=== PATIENT | female | born 2000 | race African-American/Black ===

== ENCOUNTER 2019-03-04 18:18 | Inpatient (IN) ==
[2019-03-04] MEDS ORDERED: NS 1,000 ML IV ONE ×2 (18:31→19:54)
[2019-03-04 18:48] LABS: BLOOD TYPE ARTERIAL; SAMPLE BLOOD
[2019-03-04 18:49] LABS: BASO# 0.01 X1000 (0.0-0.2); BASO% 0.2 % (0.0-0.8); EOS# 0.06 X1000 (0.0-0.7); EOS% 1.1 % (0.0-10.0); HEMATOCRIT 39.8 % (37.0-47.0); HEMOGLOBIN 13.9 g/dL (12.0-16.0); IMM GRAN# 0.03 X1000 (0.0-0.04); IMM GRAN% 0.5 % (0.0-0.5); LYMPH# 1.69 X1000 (1.2-3.4); LYMPH% 30.5 % (20.5-51.1); MCH 27.4 PG (27-31); MCHC 34.9 g/dL (33-37); MCV 78.5 FL (81-99); MONO# 0.65 X1000 (0.11-0.59); MONO% 11.7 % (1.7-9.3); MPV 10.9 FL (7.4-10.4); NEUT# 3.11 X1000 (1.4-6.5); PLT 349 X1000 (130-400); RBC 5.07 XMIL (4.2-5.4); RDW 12.8 % (11.5-14.5); WBC 5.55 X1000 (4.8-10.8)
[2019-03-04 18:49] LABS: BE -10.5 mmoll (-3.0-3.0); HCO3-(ACT) 16.6 mmoll (20.0-26.0); METHB 1.3 % (0.0-1.5); O2(CT) 18.4 mL/dL (15.0-23.0); O2HB 93.4 % (95.0-99.0); PCO2(98.6) 27 mmHg (35-45); PO2(98.6) 73 mmHg (60-100); pH(98.6) 7.32 (7.35-7.45)
[2019-03-04 18:51] LABS: MODALITY ROOM AIR
[2019-03-04 18:52] LABS: ALLEN TEST YES
[2019-03-04 18:57] LABS: ESTIMATED GFR > 60
[2019-03-04 18:59] LABS: AGAP 21; BUN 8 mg/dL (8-22); CALCIUM 9.5 mg/dL (8.8-10.2); CHLORIDE 93 mmol/L (98-107); COSMO 282; CREATININE 0.6 mg/dL (0.5-0.9); POTASSIUM 4.6 mmol/L (3.5-5.1); SODIUM 131 mmol/L (136-145); TCO2 17 mmol/L (25-35)
[2019-03-04] MEDS ORDERED: HUMULIN R IV ONE (19:00)
[2019-03-04 19:01] LABS: GLUCOSE 468 mg/dL (70-104)
[2019-03-04] MEDS ORDERED: HUMULIN R (PARKWAY) IV ONE (19:16)
[2019-03-04 19:22] LABS: CK PROFILE 58 U/L (24-173); PHOSPHORUS 4.3 mg/dL (2.7-4.5)
[2019-03-04] MEDS ORDERED: NS 100 ML IV ONE (19:24)
[2019-03-04 19:28] LABS: BILIRUBIN URINE NEGATIVE (NEGATIVE); BLOOD URINE NEGATIVE (NEGATIVE); KETONE URINE 3+(Large) mg/dL (NEGATIVE); LEUKOCYTES URINE NEGATIVE (NEGATIVE); NITRITE URINE NEGATIVE (NEGATIVE); PROTEIN URINE TRACE mg/dL (NEGATIVE); SP GRAVITY URINE 1.015; UROBILINOGEN URINE NORMAL
[2019-03-04 19:29] LABS: CLARITY CLEAR (CLEAR); COLOR YELLOW
[2019-03-04 19:35] LABS: UR AMPHETAMINES QUAL NONE DETECTED (NONE DETECT); UR BARBITUATES QUAL NONE DETECTED (NONE DETECT); UR BENZODIAZEPIN QUAL NONE DETECTED (NONE DETECT); UR CANNABINOIDS QUAL NONE DETECTED (NONE DETECT); UR COCAINE QUAL NONE DETECTED (NONE DETECT); UR METHADONE QUAL NONE DETECTED (NONE DETECT); UR METHAMPHETAMINE QUAL NONE DETECTED (NONE DETECT); UR OPIATES QUAL NONE DETECTED (NONE DETECT); UR OXYCODONE QUAL NONE DETECTED (NONE DETECT); UR PCP QUAL NONE DETECTED (NONE DETECT); UR PROPOXYPHENE QUAL NONE DETECTED (NONE DETECT); UR TCA QUAL NONE DETECTED (NONE DETECT)
[2019-03-04 19:42] LABS: ACETONE SERUM SMALL (NEGATIVE)
[2019-03-04] MEDS ORDERED: ZOFRAN IV PRN (19:45)
[2019-03-04 19:55] LABS: URINE SOURCE CLEAN CATCH
[2019-03-04 19:56] LABS: URINE BACTERIA NEGATIVE /HFP; URINE EPITHELIAL CELLS >10 /HPF (<10); URINE RBC <10 /HPF (<10); URINE WBC <10 /HPF (<10); URINE YEAST NONE SEEN /HPF
[2019-03-04 19:57] LABS: URINE CAST NONE SEEN /LPF; URINE CRYSTAL NONE SEEN /HPF
[2019-03-04] MEDS: HUMULIN R (PARKWAY) IV ONE ×3 (19:58→23:14)
[2019-03-04] MEDS ORDERED: D5 NS 1,000 ML ONE (23:07)
[2019-03-04] MEDS: D5 NS 1,000 ML IV SCH (23:14)
[2019-03-04] MEDS ORDERED: D5 NS 1,000 ML IV SCH (23:15)
[2019-03-04 23:19] LABS: AGAP 13; BUN 6 mg/dL (8-22); CHLORIDE 102 mmol/L (98-107); COSMO 276; CREATININE 0.5 mg/dL (0.5-0.9); ESTIMATED GFR > 60; GLUCOSE 150 mg/dL (70-104); MAGNESIUM 1.8 mg/dL (1.5-2.7); PHOSPHORUS 2.3 mg/dL (2.7-4.5); POTASSIUM 3.6 mmol/L (3.5-5.1); SODIUM 138 mmol/L (136-145); TCO2 23 mmol/L (25-35)
[2019-03-05] MEDS ORDERED: NS 1,000 ML IV SCH ×2 (00:45→09:45)
[2019-03-05] MEDS ORDERED: MAGNESIUM SULFATE 2 GM/S.W.I. 2 GM/50 ML IVPB IV PRN (00:45)
[2019-03-05] MEDS ORDERED: POTASSIUM CHLORIDE 20% LIQUID PO PRN (00:45)
[2019-03-05] MEDS ORDERED: ZOFRAN IV PRN (00:45)
[2019-03-05] MEDS ORDERED: HUMULIN R 100 UNIT in NS 99 ML IV SCH (00:45)
[2019-03-05] MEDS ORDERED: POTASSIUM CHLORIDE 10% LIQUID PO PRN (00:45)
[2019-03-05] MEDS ORDERED: D5 NS 1,000 ML IV SCH (00:45)
[2019-03-05] MEDS ORDERED: SODIUM BICARBONATE 8.4% 100 MEQ in STERILE WATER INJ. 500 ML IV PRN (00:45)
[2019-03-05] MEDS ORDERED: SODIUM PHOSPHATE 30 MMOL in D5W 250 ML IV PRN (00:45)
[2019-03-05] MEDS ORDERED: POTASSIUM CHLORIDE 40 MEQ/SWI 40 MEQ/100 ML IVPB IV PRN (00:45)
[2019-03-05] MEDS ORDERED: HUMULIN R IV ONE (00:45)
[2019-03-05] MEDS ORDERED: D50W SYRINGE IV PRN (00:45)
[2019-03-05] MEDS: POTASSIUM CHLORIDE 20 MEQ/SWI 20 MEQ/100 ML IVPB IV PRN ×3 (01:09→06:58)
[2019-03-05 01:14] LABS: AGAP 14; BUN 7 mg/dL (8-22); CALCIUM 8.8 mg/dL (8.8-10.2); CHLORIDE 102 mmol/L (98-107); COSMO 276; CREATININE 0.4 mg/dL (0.5-0.9); ESTIMATED GFR > 60; GLUCOSE 170 mg/dL (70-104); MAGNESIUM 1.8 mg/dL (1.5-2.7); PHOSPHORUS 2.7 mg/dL (2.7-4.5); POTASSIUM 3.4 mmol/L (3.5-5.1); SODIUM 137 mmol/L (136-145); TCO2 21 mmol/L (25-35)
[2019-03-05] MEDS: D5 NS 1,000 ML IV SCH (05:57)
[2019-03-05 06:41] LABS: AGAP 12; BUN 7 mg/dL (8-22); CALCIUM 8.3 mg/dL (8.8-10.2); CHLORIDE 107 mmol/L (98-107); COSMO 278; CREATININE 0.4 mg/dL (0.5-0.9); ESTIMATED GFR > 60; GLUCOSE 182 mg/dL (70-104); MAGNESIUM 1.7 mg/dL (1.5-2.7); SODIUM 138 mmol/L (136-145); TCO2 19 mmol/L (25-35)
[2019-03-05 09:21] LABS: HEMOGLOBIN A1C 13.9 % (4.8-6.0)
[2019-03-05 09:40] LABS: AGAP 12; BUN 7 mg/dL (8-22); CHLORIDE 108 mmol/L (98-107); COSMO 280; CREATININE 0.4 mg/dL (0.5-0.9); ESTIMATED GFR > 60; GLUCOSE 149 mg/dL (70-104); MAGNESIUM 2.4 mg/dL (1.5-2.7); POTASSIUM 3.7 mmol/L (3.5-5.1); SODIUM 140 mmol/L (136-145); TCO2 21 mmol/L (25-35)
--- NOTE | 2019-03-05 09:44 | HISTORY AND PHYSICAL ---
PRIMARY CARE PHYSICIAN: Is in [place], [place] where she attends college but is back home in [place] for summer break. CHIEF COMPLAINT: Increased blood sugars in the 400s after taking medications. HISTORY OF PRESENTING ILLNESS: This is a 18-year-old female who presents to [facility] ER with complaints of an elevated blood sugar in the 400s that began on the morning of arrival. States that she had taken her medications in a.m. Her blood sugar stayed elevated in the 400s. Prior to this she states that her blood sugars normally run in the low 200s. She has a history of DKA in the past. When she arrived her blood sugar was 468 with a sodium of 131, chloride 93, the anion gap was 21. Her acetone level was small, so she was admitted to the intensive care unit and placed on our DKA protocol for further evaluation and treatment. PAST MEDICAL HISTORY: Diabetes type 1 and DKA. PAST SURGICAL HISTORY: None. FAMILY HISTORY: Reviewed and noncontributory. SOCIAL HISTORY: She currently lives with family. Denies any tobacco, alcohol or illicit drug use. ALLERGIES: She has no known drug allergies. HOME MEDICATIONS: She takes Levemir 25 units subcutaneous at bedtime and Humalog 12 units subcutaneous t.i.d. a.c. LABORATORY DATA: Showed a white blood cell count of 5.55, hemoglobin 13.9, hematocrit 39.8, platelets 349,000. ABG with a pH of 7.32, pCO2 27, bicarb 16.6, and this was on room air. Sodium 131, potassium 4.6, chloride 93, CO2 17, anion gap of 21, BUN of 8, creatinine 0.6, glucose 468, magnesium of 1.8. Plasma lactate of 1.3. Cardiac enzyme was negative. Urinalysis was negative except for 3+ ketones and 3+ glucose. Urine drug screen was negative. Acetone level was small. REVIEW OF SYSTEMS: She denied any fever, chills, blurred vision, dizziness. Denied any nausea, vomiting, abdominal pain, constipation, diarrhea, or burning or hurting with urination. PHYSICAL EXAMINATION: VITAL SIGNS: On arrival she had a temperature of 98 degrees, pulse of 120, respirations 20, blood pressure 120/87, saturating 100% on room air. GENERAL: This is a 18-year-old female who is lying in the bed and answers questions appropriately. HEEMNT: Normocephalic, atraumatic. Normal ENT inspection. Oropharynx and nares are clear. EYES: Pupils are equal, round, reactive to light and accommodation. Extraocular movements are intact. NECK: Normal inspection. Normal range of motion. LUNGS: Clear to auscultation bilaterally with equal lung expansion and chest wall movement. HEART: With regular rate and rhythm. No murmurs, rubs, or gallops. ABDOMEN: Soft, nontender, nondistended. Bowel sounds are present x4 quadrants. MUSCULOSKELETAL: She has 5/5 strength x4 extremities. NEUROLOGICAL: The cranial nerves 2-12 appear grossly intact. ASSESSMENT: 1. Diabetic ketoacidosis. 2. Diabetes type 1, uncontrolled with hyperglycemia. PLAN: She was admitted to the intensive care unit. Placed on our DKA protocol on an insulin drip per the protocol. I am going to give her a diabetic diet this morning as she denies any nausea, vomiting, abdominal pain. She has fluids per the protocol. Electrolytes being given per protocol and labs. We are going to check a hemoglobin A1c today. Once she is off her insulin drip, which she is very close at this time as currently her blood sugar is down to 191 we are going to continue her home medications and place her on fingerstick blood sugars q.[address] on a sliding scale insulin of Humalog with moderate coverage. Further orders after seen by attending. Dictated by ANDREIA Orona for Guzman Ontiveros MD Addendum: Patient seen and examined by myself. Agree with ANDREIA note. It reflects my assessment and plan. Patient is being admitted to hospital for DKA. Now it is almost resolved. Will restart Levemir and sliding scale insulin and will go from there. cc: ANDREIA Orona MD [facility]
[2019-03-05] MEDS ORDERED: LEVEMIR INSULIN *HA SUBQ SCH ×2 (09:45→21:00)
[2019-03-05] MEDS: LEVEMIR INSULIN *HA SUBQ SCH (09:59)
[2019-03-05] MEDS ORDERED: HUMALOG (PARKWAY) SUBQ SCH ×2 (11:00)
[2019-03-05] MEDS: HUMALOG (PARKWAY) SUBQ SCH ×3 (11:09→21:56)
--- NOTE | 2019-03-05 11:16 | EKG Report ---
Test Performed on : 03/04/2019 6:47:21 PM Test Reason : ER Blood Pressure : / mmHG Vent. Rate : 112 BPM Atrial Rate : 112 BPM P-R Int : 150 ms QRS Dur : 076 ms QT Int : 334 ms P-R-T Axes : 072 060 043 degrees QTc Int : 455 ms Sinus tachycardia. Possible Left atrial enlargement Borderline ECG No previous ECGs available Unconfirmed Result
[2019-03-06] MEDS: HUMALOG (PARKWAY) SUBQ SCH ×2 (06:28→11:25)
[2019-03-06 09:09] LABS: BASO# 0.01 X1000 (0.0-0.2); BASO% 0.3 % (0.0-0.8); EOS# 0.09 X1000 (0.0-0.7); EOS% 2.5 % (0.0-10.0); HEMATOCRIT 36.6 % (37.0-47.0); HEMOGLOBIN 12.2 g/dL (12.0-16.0); IMM GRAN# 0.02 X1000 (0.0-0.04); IMM GRAN% 0.6 % (0.0-0.5); LYMPH# 1.16 X1000 (1.2-3.4); MCH 26.6 PG (27-31); MCHC 33.3 g/dL (33-37); MCV 79.9 FL (81-99); NEUT# 1.95 X1000 (1.4-6.5); NEUT% 53.6 % (42.2-75.2); PLT 279 X1000 (130-400); RBC 4.58 XMIL (4.2-5.4); WBC 3.63 X1000 (4.8-10.8)
[2019-03-06 09:29] LABS: AGAP 13; BUN 8 mg/dL (8-22); CALCIUM 8.2 mg/dL (8.8-10.2); CHLORIDE 108 mmol/L (98-107); COSMO 283; CREATININE 0.3 mg/dL (0.5-0.9); ESTIMATED GFR > 60; GLUCOSE 162 mg/dL (70-104); PHOSPHORUS 3.7 mg/dL (2.7-4.5); POTASSIUM 3.4 mmol/L (3.5-5.1); SODIUM 141 mmol/L (136-145); TCO2 21 mmol/L (25-35)
[2019-03-06] MEDS ORDERED: KLOR-CON PO ONE (10:12)
[2019-03-06] MEDS: LEVEMIR INSULIN *HA SUBQ SCH (10:14)
[2019-03-06 12:24] VITALS: BP 98/59
[2019-03-06] MEDS ORDERED: TORADOL IV ONE (12:24)
[2019-03-06] MEDS ORDERED: OFIRMEV 1000 MG/ISOTONIC SOLN 1,000 MG/100 ML BOTTLE IV SCH (12:30)
--- NOTE | 2019-03-06 12:33 | DISCHARGE SUMMARY ---
ADMISSION DATE: 03/04/2019 DISCHARGE DATE: 03/06/2019 ADMISSION DIAGNOSES: 1. Diabetic ketoacidosis. 2. Diabetes type 1, uncontrolled with hyperglycemia. DISCHARGE DIAGNOSES: 1. Diabetic ketoacidosis, resolved. 2. Diabetes type 1, uncontrolled with hyperglycemia. Hemoglobin A1c 13.9. SUMMARY OF FINDINGS: This is a 18-year-old female who presented to the emergency room with complaints of an elevated blood sugar in the 400's that began on the morning of arrival. She states she had taken her medication in the morning, and her blood sugars stayed elevated in the 400s. She states that they normally run in the low 200s. Again, her hemoglobin A1c was 13.9. She was found to be in DKA. Anion gap was 21, blood sugar 468. Her acetone level was small. She was admitted to the intensive care unit and placed on our DKA protocol and an insulin drip. She has since been weaned off of the insulin drip, and placed on her home medications of Levemir 30 units subcutaneous daily, and continued on pattern blood sugars with sliding scale insulin. This morning her blood sugar was noted to be 162, and it was felt that she could safely be discharged home. DISCHARGE MEDICATIONS: 1. Levemir 35 units subcu at bedtime. 2. Humalog 12 units subcutaneous t.i.d. before meals. FOLLOW UP: She will need to follow up with her primary care physician in [place], [place] in the next 1 to 2 weeks, and call their office for an appointment. All discharge instructions were reviewed with the patient, and she verbalized understanding. TIME SPENT: A 33 minute discharge. Dictated by ANDREIA Orona for Guzman Ontiveros MD Addendum: Patient seen and examined by myself. Agree with ANDREIA note. It reflects my assessment and plan. Patient is being discharged in stable condition. Will be seen by primary care doctor in a week. cc: ANDREIA Orona MD [facility]
--- NOTE | 2019-03-08 17:00 | PROVIDER DOCUMENTATION ---
This chart was entered by Idania Arroyo Scribe, acting as scribe for Lara Cuello CRNP. HPI-General Adult - General Chief Complaint: High Blood Sugar Stated Complaint: DKA Time Seen by Provider: 03/04/19 18:35 Source: patient Allergies/Adverse Reactions: Patient Allergies Allergy/AdvReac Type Severity Reaction Status Date / Time No Known Allergies Allergy Verified 03/04/19 18:45 Home Medications: Home Medication List Medication Instructions Recorded Confirmed Last Taken Type Insulin Lispro [Humalog] 12 unit SQ TID AC 03/04/19 03/04/19 03/04/19 14:00 History Insulin Detemir [Levemir] 35 unit SUBQ QHS #0 03/06/19 03/04/19 03/03/19 Rx - History of Present Illness -Gen Adult Nature of Presenting Problems: 18 y/o female presents to ED with hyperglycemia onset this morning. Pt reports F SBS was in the in the 400s after taking her medication. FSBS 453 in triage. Pt states she has hx DKA. Pt is alert and oriented. Location of Pain/Injury: reports: none Pain Radiation: reports: no radiation Quality of Pain: reports: none Severity: reports: moderate Onset/Duration: reports: this morning Timing: reports: still present Context/Activities at Onset: reports: none Modifying Factors: improves with: nothing Associated Symptoms: reports: other (hyperglycemia) Similar Symptoms Previously?: No Recently seen or treated by another doctor?: No - Diabetes Related Context Context: reports: high blood sugar, prior DKA hospitalization Review of Systems - Adult - REVIEW OF SYSTEMS - ADULT Constitutional: reports: other (hyperglycemia). denies: chills, fever Eyes: reports: no symptoms reported Ears, Nose, Mouth & Throat: reports: no symptoms reported Cardiovascular: denies: chest pain, palpitations Respiratory: denies: cough, shortness of breath Gastrointestinal: denies: abdominal pain, diarrhea, nausea, vomiting Genitourinary: reports: no symptoms reported Musculoskeletal: denies: back pain, joint pain Integumentary: reports: no symptoms reported Neurological: denies: dizziness/vertigo, seizure Psychiatric: reports: no symptoms reported Endocrine: reports: other (hyperglycemia). denies: goiter Hematologic/Lymphatic: reports: no symptoms reported Allergic/Immunologic: reports: no symptoms reported All Other Systems: Reviewed and Negative Past History - Adult - PAST MEDICAL HISTORY-ADULT Review of Records: reports: Old Records Reviewed, Nursing Assessment Review, Medications Reviewed Major Childhood Illnesses: reports: denies history Endocrine/Immune: reports: Diabetes Diabetes Type: Type 1 - PRIOR SURGERIES/PROCEDURES Surgical/Procedure History: reports: none - IMMUNIZATION STATUS Childhood Immunizations: See Nurse Assessment Flu Vaccine: See Nurse Assessment - FAMILY HISTORY Family History: reviewed, not pertinent - SOCIAL HISTORY Smoking: non-smoker Substance Use: none/never Alcohol Use Frequency: never Living Situation: family Physical Exam-General - PHYSICAL EXAM-ADULT Initial Vital Signs Reviewed: Yes - CONSTITUTIONAL General Appearance: appears well, alert, no apparent distress - EYES Eyes: PERRL/EOMI, pink conjunctivae - HEAD, EARS, NOSE, MOUTH & THROAT HENMT: normocephalic/atraumatic, moist mucous membranes, normal ENT inspection - NECK Neck: non-tender, full range of motion - RESPIRATORY Respiratory: chest non-tender, lungs clear, normal breath sounds - CARDIOVASCULAR Cardiovascular: normal peripheral pulses, regular rate, rhythm - GASTROINTESTINAL (ABDOMEN) Abdominal Exam: normal bowel sounds, non tender, soft - MUSCULOSKELETAL Back Exam: normal inspection, no CVA tenderness Extremity: normal range of motion, non-tender, normal gait - SKIN Integumentary: normal color, warm/dry - NEUROLOGIC Neurologic: grossly normal - PSYCHIATRIC Psych/Mental Status: normal mood/affect, normal thought content, normal thought process Progress - PLAN OF CARE/RESULTS Progress/Plan/Lab Results: Vital Signs - 8 hr 03/04/19 18:20 Temperature 98.0 F Pulse Rate 120 H Respiratory Rate 20 Blood Pressure 120/087 O2 Sat by Pulse Oximetry 100 Orders Category Date Time Status Finger Stick Blood Sugar (ED) DIRECTED Care 03/04/19 18:32 Active Saline Loc NOW Care 03/04/19 18:31 Active ABG [RESP] Routine Lab 03/04/19 18:32 Ordered BASIC METABOLIC PANEL [CHEM] Stat Lab 03/04/19 18:32 Ordered CBC WITH ELECTRONIC DIFF [HEME] Stat Lab 03/04/19 18:31 Uncollected 0.9% Sodium Chloride Inj [Ns] 1,000 ml Med 03/04/19 18:31 Active IV 999 mls/hr Laboratory Tests 03/04/19 03/04/19 03/04/19 18:30 18:30 18:32 WBC 5.55 RBC 5.07 Hgb 13.9 Hct 39.8 MCV 78.5 L MCH 27.4 MCHC 34.9 RDW Std Deviation 12.8 Plt Count 349 MPV 10.9 H Immature Gran % (Auto) 0.5 Neut % (Auto) 56.0 Lymph % (Auto) 30.5 [place]asper % (Auto) 11.7 H Eos % (Auto) 1.1 Baso % (Auto) 0.2 Immature Gran # (Auto) 0.03 Neut # (Auto) 3.11 Lymph # (Auto) 1.69 Jasper # (Auto) 0.65 H Eos # (Auto) 0.06 Baso # (Auto) 0.01 Specimen Type ARTERIAL Sample Site R RADIAL pH 7.32 L pCO2 27 L pO2 73 HCO3 16.6 L Base Excess -10.5 L Oxyhemoglobin 93.4 L ABG O2 Sat (Calculated) 18.4 ABG O2 Saturation 97.0 ABG Carboxyhemoglobin 2.40 ABG Methemoglobin 1.3 Andrew Test YES A-a O2 Difference 43.0 Total Hemoglobin 14.0 Lactate 1.20 Blood Gas Modality ROOM AIR FiO2 % 21.0 Sodium 131 L Potassium 4.6 Chloride 93 L Carbon Dioxide 17 L Anion Gap 21 BUN 8 Creatinine 0.6 Estimated GFR/1.73 m2 > 60 BUN/Creatinine Ratio 13 Glucose 468 H* Calculated Osmolality 282 Calcium 9.5 Result Diagrams: 03/06/19 08:45 03/06/19 08:45 - EKG 1 Time of EKG reading by physician:: 18:48 EKG Read and Signed by:: Gaurav Renteria EKG Interpretation (*Must complete 3 of following elements*): Abnormal Rate: 112 Rhythm: [facility] [place]: normal QRS: normal NH Interval: normal ST Wave: normal - CONSULTS/PCP/HOSPITALIST Notification #1 *Consult/PCP/Hospitalist*: Dr. Mendoza Time Discussed: 19:58 Reason/Comments: DKA Consult Disposition: Admit Departure - Departure Date of Disposition Decision: 03/04/19 Time of Disposition Decision: 19:58 DIAGNOSIS: DKA (diabetic ketoacidoses) Qualifiers: Diabetes mellitus type: type 1 Diabetes mellitus complication detail: without coma Qualified Code(s): E10.10 - Type 1 diabetes mellitus with ketoacidosis without coma Disposition: ADMITTED INPATIENT 09 Certified Medical Emergency: Emergent Condition: Stable - Critical Care Note This patient required my direct & personal management of CC.: No Attestation - Physician/ AGNES Attestation Patient care was provided by Advanced Practice Provider:: Yes Advanced Practice Provider:: Lara Cuello Advanced Practice Provider documentation review:: The Mid-level provider documentation, treatment plan and medical decision making was reviewed by the ysician who agrees with all treatment and medical decision making by the MLP. The physician spent face to face time with patient:: No Advanced Practice Provider documentation review:: Supervising physician onsite and consulted in the evaluation and care of this patient. The physician did not have a face to face encounter with the patient. This chart was documented by the indicated scribe, (Idania Arroyo Scribe) and accurately reflects the services I performed and decisions made by me, Lara Cuello CRNP, as attested by the provider's signature.
== END 2019-03-06 11:45 | disposition home or self-care (01) | DRG 639 ==
LOC: P.ED 18:18 → SUATTDRO 18:19 → P.EDIPHOLD 20:17 → P.ICU 23:22
PROVIDERS: ATTEND Internal Medicine
CPT/HCPCS: 36415; 80048; 80104; 80301; 80305; 81001; 81025; 82009; 82550; 82805; 82948; 83036; 83605; 83735; 84100; 84484; 85025; 93005; 96365; 99285; A9270; G0431; G0434; G0477; J1815; J3475; J3480; J7030; J7042; XXXXX

== ENCOUNTER 2019-09-25 08:26 | Inpatient (IN) ==
[2019-09-25] MEDS ORDERED: SODIUM PHOSPHATE 30 MMOL in D5W 250 ML IV PRN (09:08)
[2019-09-25] MEDS ORDERED: NS 1,000 ML IV ONE (09:08)
[2019-09-25] MEDS ORDERED: POTASSIUM CHLORIDE 10% LIQUID PO PRN (09:08)
[2019-09-25] MEDS ORDERED: SODIUM BICARBONATE 8.4% 100 MEQ in STERILE WATER INJ. 500 ML IV PRN ×2 (09:08→11:31)
[2019-09-25] MEDS ORDERED: D50W SYRINGE IV PRN ×3 (09:08→11:31)
[2019-09-25] MEDS ORDERED: POTASSIUM CHLORIDE 20 MEQ/SWI 20 MEQ/100 ML IVPB IV PRN ×3 (09:08→11:31)
[2019-09-25] MEDS ORDERED: MAGNESIUM SULFATE 2 GM/S.W.I. 2 GM/50 ML IVPB IV PRN (09:08)
[2019-09-25] MEDS ORDERED: POTASSIUM CHLORIDE 20% LIQUID PO PRN (09:08)
[2019-09-25] MEDS ORDERED: ZOFRAN IM ONE (09:18)
[2019-09-25] MEDS ORDERED: ZOFRAN IV ONE (09:20)
--- NOTE | 2019-09-25 09:40 | Diag Imaging Result Doc PS360 ---
CHEST-1 VIEW - 09/25/2019 INDICATION: POSSIBLE SEPSIS COMPARISON: None FINDINGS: There is linear atelectasis in the right hilum. Lung volumes are severely low. No infiltrates. Heart size and pulmonary vascularity is normal. No pneumothorax or pleural effusion. IMPRESSION: Low lung volumes with mild linear atelectasis in the right lung base. Electronically signed by Adin Arce 09/25/2019 9:38 AM
[2019-09-25 09:46] LABS: URINE SOURCE CLEAN CATCH
[2019-09-25 09:48] LABS: ACETONE SERUM MODERATE (NEGATIVE)
[2019-09-25 09:50] LABS: BILIRUBIN URINE NEGATIVE (NEGATIVE); BLOOD URINE NEGATIVE (NEGATIVE); COLOR STRAW; GLUCOSE URINE >1000 mg/dL (NEGATIVE); KETONE URINE >150 mg/dL (NEGATIVE); LEUKOCYTES URINE NEGATIVE (NEGATIVE); NITRITE URINE NEGATIVE (NEGATIVE); PH URINE 5.5; PROTEIN URINE 50 mg/dL (NEGATIVE); SP GRAVITY URINE 1.025; TURBIDITY URINE CLEAR (CLEAR); UROBILINOGEN URINE NORMAL (NORMAL)
[2019-09-25 09:51] LABS: UR EPITHELIAL CELLS <10 /HPF (<10); URINE BACTERIA NEGATIVE /HPF; URINE RBC <10 /HPF (<10); URINE WBC <10 /HPF (<10)
[2019-09-25 09:55] LABS: BASO# 0.05 X1000 (0.0-0.2); BASO% 0.5 % (0.0-0.8); EOS# 0.02 X1000 (0.0-0.7); EOS% 0.2 % (0.0-10.0); HEMATOCRIT 43.7 % (37.0-47.0); HEMOGLOBIN 13.5 g/dL (12.0-16.0); IMM GRAN# 0.21 X1000 (0.0-0.04); IMM GRAN% 1.9 % (0.0-0.5); LYMPH# 1.42 X1000 (1.2-3.4); MCH 26.8 PG (27-31); MCHC 30.9 g/dL (33-37); MCV 86.7 FL (81-99); MONO# 1.47 X1000 (0.11-0.59); MONO% 13.5 % (1.7-9.3); MPV 11.4 FL (7.4-10.4); NEUT# 7.73 X1000 (1.4-6.5); NEUT% 70.9 % (42.2-75.2); PLT 382 X1000 (130-400); RBC 5.04 XMIL (4.2-5.4); RDW 13.6 % (11.5-14.5)
[2019-09-25 09:58] LABS: UR AMPHETAMINES QUAL NONE DETECTED (NONE DETECT); UR BARBITUATES QUAL NONE DETECTED (NONE DETECT); UR BENZODIAZEPIN QUAL NONE DETECTED (NONE DETECT); UR CANNABINOIDS QUAL NONE DETECTED (NONE DETECT); UR COCAINE QUAL NONE DETECTED (NONE DETECT); UR METHADONE QUAL NONE DETECTED (NONE DETECT); UR OPIATES QUAL NONE DETECTED (NONE DETECT); UR OXYCODONE QUAL NONE DETECTED (NONE DETECT); UR PCP QUAL NONE DETECTED (NONE DETECT)
[2019-09-25 10:14] LABS: AGAP 41; ALB/GLOB RATIO 1.3; ALBUMIN 4.6 g/dL (3.5-5.0); ALKALINE PHOSPHATASE 211 U/L (32-104); BUN 12 mg/dL (8-22); CHLORIDE 88 mmol/L (98-107); CK PROFILE 51 U/L (24-173); COSMO 306; CREATININE 0.8 mg/dL (0.5-0.9); ESTIMATED GFR > 60; GLUCOSE 684 mg/dL (70-104); GOT 36 U/L (10-30); GPT 45 U/L (10-36); MAGNESIUM 2.4 mg/dL (1.5-2.7); PHOSPHORUS 6.3 mg/dL (2.7-4.5); POTASSIUM 5.6 mmol/L (3.5-5.1); SODIUM 137 mmol/L (136-145); TCO2 8 mmol/L (25-35); TOTAL BILIRUBIN 0.18 mg/dL (0.20-1.00); TOTAL PROTEIN 8.1 g/dL (6.3-8.3)
[2019-09-25 10:16] LABS: INR 1.05; PROTIME 13.9 Seconds (11.0-16.0)
[2019-09-25 10:17] LABS: PTT 24.3 Seconds (22.3-41.8)
[2019-09-25 10:41] LABS: BANDS 4 % (0-1); LYMPHS 14 % (21-51); MONO 10 % (1-9); SEGS 70 % (42-75)
[2019-09-25] MEDS ORDERED: HUMULIN R 100 UNIT in NS 100 ML IV SCH ×2 (11:00→11:31)
[2019-09-25] MEDS ORDERED: HUMULIN R IV ONE (11:00)
[2019-09-25] MEDS ORDERED: ROCEPHIN 1 GM in NS 50 ML IV ONE (11:17)
--- NOTE | 2019-09-25 11:17 | PROVIDER DOCUMENTATION ---
HPI-Abdominal Pain/GI Problem - General Chief Complaint: DKA ALERT Stated Complaint: HIGH FS Time Seen by Provider: 09/25/19 09:10 Source: patient Allergies/Adverse Reactions: Patient Allergies Allergy/AdvReac Type Severity Reaction Status Date / Time No Known Allergies Allergy Verified 09/25/19 09:24 Home Medications: Home Medication List Medication Instructions Recorded Confirmed Last Taken Type Insulin Lispro [Humalog] 0 unit SQ DIRECTED PRN PRN 03/04/19 09/25/19 06/25/19 12:00 History Amoxicillin 500 mg PO TID 10 Days #30 cap 09/24/19 09/25/19 Unknown Rx Ibuprofen [Motrin] 600 mg PO Q6-8H PRN PRN #20 tab 09/24/19 09/25/19 Unknown Rx Insulin Detemir [Levemir] 25 unit SUBQ QHS 09/24/19 09/25/19 Unknown History Tramadol [Ultram] 50 mg PO Q6H PRN PRN #15 tab 09/24/19 09/25/19 Unknown Rx - History of Present Illness-ABD Nature of Presenting Problems: Patient has type1 DM, was seen yesterday at [facility] for ROM and started on amoxil. Patient started vomiting today. Had numerous episodes and became lethargic and was brought to the ER by EMS Abdominal Pain Onset Location: reports: generalized abdomen Pain Radiation: reports: no radiation Quality of Pain: reports: aching Onset/Duration: reports: this morning Timing: reports: still present Activities at Onset: reports: none Modifying Factors: improves with: nothing Review of Systems - Adult - REVIEW OF SYSTEMS - ADULT Constitutional: reports: fatique Eyes: reports: no symptoms reported Ears, Nose, Mouth & Throat: reports: no symptoms reported Cardiovascular: reports: no symptoms reported Respiratory: reports: no symptoms reported Gastrointestinal: reports: see HPI Genitourinary: reports: no symptoms reported Musculoskeletal: reports: no symptoms reported Integumentary: reports: no symptoms reported Neurological: reports: no symptoms reported Psychiatric: reports: no symptoms reported Endocrine: reports: no symptoms reported Hematologic/Lymphatic: reports: no symptoms reported Allergic/Immunologic: reports: no symptoms reported All Other Systems: Reviewed and Negative Past History - Adult - PAST MEDICAL HISTORY-ADULT Review of Records: reports: Nursing Assessment Review, Medications Reviewed, Social history reviewed & non-contributory. Major Childhood Illnesses: reports: denies history Cardiovascular: reports: hyperlipidemia. denies: cardiac disease Respiratory: reports: denies history Gastrointestinal: reports: denies history Obstetrical/Gynecological: reports: denies history Genitourinary: reports: denies history Musculoskeletal: reports: denies history Neurological: reports: denies history Endocrine/Immune: reports: Diabetes Other Conditions: reports: denies history - PRIOR SURGERIES/PROCEDURES Surgical/Procedure History: reports: reviewed, not pertinent - IMMUNIZATION STATUS Childhood Immunizations: UTD Flu Vaccine: NUTD - FAMILY HISTORY Family History: reviewed, not pertinent - SOCIAL HISTORY Smoking: denies Substance Use: none/never Alcohol Use Frequency: never Physical Exam-General - CONSTITUTIONAL General Appearance: lethargic - EYES Eyes: PERRL/EOMI - HEAD, EARS, NOSE, MOUTH & THROAT HENMT: normocephalic/atraumatic, other (dry oral mucosa) - NECK Neck: non-tender, full range of motion, supple - RESPIRATORY Respiratory: chest non-tender, lungs clear, normal breath sounds - CARDIOVASCULAR Cardiovascular: no edema, tachycardia - GASTROINTESTINAL (ABDOMEN) Abdominal Exam: normal bowel sounds, soft, tenderness (mild) - MUSCULOSKELETAL Back Exam: normal inspection, no CVA tenderness, no vertebral tenderness Extremity: normal range of motion, non-tender - SKIN Integumentary: normal color - NEUROLOGIC 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 - PSYCHIATRIC Psych/Mental Status: oriented x 3 Progress - PLAN OF CARE/RESULTS Progress/Plan/Lab Results: Vital Signs - 8 hr 09/25/19 08:30 09/25/19 08:34 09/25/19 08:58 Temperature 98.7 F Pulse Rate 125 H 134 H 126 H Respiratory Rate 25 H 22 23 Blood Pressure 150/105 150/105 123/84 O2 Sat by Pulse Oximetry 100 99 98 09/25/19 10:23 09/25/19 10:32 09/25/19 10:47 Temperature Pulse Rate 132 H 132 H 135 H Respiratory Rate 26 H 25 H 29 H Blood Pressure 107/73 106/66 127/75 O2 Sat by Pulse Oximetry 98 99 98 Bedside Urine ED: Urine Bedside Start: 09/25/19 09:08 Freq: NOW Status: Active Protocol: Activity Type Activity Date Activity User E-Sign Co-Sign Detail Recorded Client Recorded Date Recorded By Document 09/25/19 09:41 [id number] 09/25/19 09:41 [id number] 09/25/19 09:41 Point of Care [Bedside Point of Care] -Lot # [id number] - Results Negative -Control Line Visible? Yes Laboratory Results - last 24 hr 09/25/19 09/25/19 09/25/19 09:08 09:18 09:18 WBC 10.90 H RBC 5.04 Hgb 13.5 Hct 43.7 MCV 86.7 MCH 26.8 L MCHC 30.9 L RDW Std Deviation 13.6 Plt Count 382 MPV 11.4 H Immature Gran % (Auto) 1.9 H Neut % (Auto) 70.9 Lymph % (Auto) 13.0 L [place] % (Auto) 13.5 H Eos % (Auto) 0.2 Baso % (Auto) 0.5 Immature Gran # (Auto) 0.21 H Neut # (Auto) 7.73 H Lymph # (Auto) 1.42 [place] # (Auto) 1.47 H Eos # (Auto) 0.02 Baso # (Auto) 0.05 Segmented Neutrophils 70 Band Neutrophils 4 H Lymphocytes 14 L Monocytes 10 H Myelocytes 2.0 PT INR PTT (Actin FS) Sodium 137 Potassium 5.6 H Chloride 88 L Carbon Dioxide 8 L Anion Gap 41 BUN 12 Creatinine 0.8 Estimated GFR/1.73 m2 > 60 BUN/Creatinine Ratio 15 Glucose 684 H* POC Glucose 500 H D Calculated Osmolality 306 Calcium 10.0 Phosphorus 6.3 H Magnesium 2.4 Total Bilirubin 0.18 L AST 36 H ALT 45 H Alkaline Phosphatase 211 H Creatine Kinase 51 Troponin T Total Protein 8.1 Albumin 4.6 Globulin 3.5 Albumin/Globulin Ratio 1.3 Plasma Lactate Urine Source Urine Color Urine Turbidity Urine pH Ur Specific [place] Urine Protein Ur Glucose (Stick) Ur Ketones (Stick) Urine Blood Urine Nitrite Urine Bilirubin Urobilinogen Dipstick Urine Leukocytes Urine WBC (Auto) Urine RBC (Auto) U Epithel Cells (Auto) Urine Bacteria (Auto) Urine Opiates Screen Ur Oxycodone Screen Ur Methadone, Qual Ur Barbiturates Screen Ur Phencyclidine Scrn Ur Amphetamines Screen U Benzodiazepines Scrn Urine Cocaine Screen U Cannabinoids Screen Acetone Level MODERATE A 09/25/19 09/25/19 09/25/19 09:18 09:18 09:18 WBC RBC Hgb Hct MCV MCH MCHC RDW Std Deviation Plt Count MPV Immature Gran % (Auto) Neut % (Auto) Lymph % (Auto) [place] % (Auto) Eos % (Auto) Baso % (Auto) Immature Gran # (Auto) Neut # (Auto) Lymph # (Auto) [place] # (Auto) Eos # (Auto) Baso # (Auto) Segmented Neutrophils Band Neutrophils Lymphocytes Monocytes Myelocytes PT 13.9 INR 1.05 PTT (Actin FS) 24.3 Sodium Potassium Chloride Carbon Dioxide Anion Gap BUN Creatinine Estimated GFR/1.73 m2 BUN/Creatinine Ratio Glucose POC Glucose Calculated Osmolality Calcium Phosphorus Magnesium Total Bilirubin AST ALT Alkaline Phosphatase Creatine Kinase Troponin T < 0.010 Total Protein Albumin Globulin Albumin/Globulin Ratio Plasma Lactate 2.9 H Urine Source Urine Color Urine Turbidity Urine pH Ur Specific [place] Urine Protein Ur Glucose (Stick) Ur Ketones (Stick) Urine Blood Urine Nitrite Urine Bilirubin Urobilinogen Dipstick Urine Leukocytes Urine WBC (Auto) Urine RBC (Auto) U Epithel Cells (Auto) Urine Bacteria (Auto) Urine Opiates Screen Ur Oxycodone Screen Ur Methadone, Qual Ur Barbiturates Screen Ur Phencyclidine Scrn Ur Amphetamines Screen U Benzodiazepines Scrn Urine Cocaine Screen U Cannabinoids Screen Acetone Level 09/25/19 09/25/19 09:37 09:37 WBC RBC Hgb Hct MCV MCH MCHC RDW Std Deviation Plt Count MPV Immature Gran % (Auto) Neut % (Auto) Lymph % (Auto) [place] % (Auto) Eos % (Auto) Baso % (Auto) Immature Gran # (Auto) Neut # (Auto) Lymph # (Auto) [place] # (Auto) Eos # (Auto) Baso # (Auto) Segmented Neutrophils Band Neutrophils Lymphocytes Monocytes Myelocytes PT INR PTT (Actin FS) Sodium Potassium Chloride Carbon Dioxide Anion Gap BUN Creatinine Estimated GFR/1.73 m2 BUN/Creatinine Ratio Glucose POC Glucose Calculated Osmolality Calcium Phosphorus Magnesium Total Bilirubin AST ALT Alkaline Phosphatase Creatine Kinase Troponin T Total Protein Albumin Globulin Albumin/Globulin Ratio Plasma Lactate Urine Source CLEAN CATCH Urine Color STRAW Urine Turbidity CLEAR Urine pH 5.5 Ur Specific [place] 1.025 Urine Protein 50 A Ur Glucose (Stick) >1000 A Ur Ketones (Stick) >150 Urine Blood NEGATIVE Urine Nitrite NEGATIVE Urine Bilirubin NEGATIVE Urobilinogen Dipstick NORMAL Urine Leukocytes NEGATIVE Urine WBC (Auto) <10 Urine RBC (Auto) <10 U Epithel Cells (Auto) <10 Urine Bacteria (Auto) NEGATIVE Urine Opiates Screen NONE DETECTED Ur Oxycodone Screen NONE DETECTED Ur Methadone, Qual NONE DETECTED Ur Barbiturates Screen NONE DETECTED Ur Phencyclidine Scrn NONE DETECTED Ur Amphetamines Screen NONE DETECTED U Benzodiazepines Scrn NONE DETECTED Urine Cocaine Screen NONE DETECTED U Cannabinoids Screen NONE DETECTED Acetone Level Orders Category Date Time Status Cardiac Monitoring DIRECTED Care 09/25/19 08:42 Active ED: Urine Bedside NOW Care 09/25/19 09:08 Active FSBS/Accucheck Result Q15M Care 09/25/19 09:12 Active FSBS/Accucheck Result Q1H Care 09/25/19 09:08 Active Hypoglycemia/FSBS <50 or Range of 50-70 PRN Care 09/25/19 09:12 Active IV Insertion ORDERED Care 09/25/19 08:42 Completed Notify MD of + Sepsis Screen NOW Care 09/25/19 08:42 Active Notify Physician As Ordered Care 09/25/19 08:42 Active Saline Loc DIRECTED Care 09/25/19 09:12 Active Saline Loc NOW Care 09/25/19 09:08 Active Saline Loc NOW Care 09/25/19 11:00 Active CHEST-1 VIEW [RAD] Stat Exams 09/25/19 08:42 Completed ACETONE SERUM [CHEM] Stat Lab 09/25/19 09:18 Completed BLOOD CULTURE [BLDCUL] Stat Lab 09/25/19 09:15 Results CBC WITH DIFF [HEME] Stat Lab 09/25/19 09:18 Completed CK PROFILE [SP CHEM] Stat Lab 09/25/19 09:18 Completed COMPREHENSIVE METABOLIC PANEL [CHEM] Stat Lab 09/25/19 09:18 Completed LACTATE, PLASMA [CHEM] Q3H Lab 09/25/19 09:18 Completed LACTATE, PLASMA [CHEM] Q3H Lab 09/25/19 11:05 Ordered LACTATE, PLASMA [CHEM] Q3H Lab 09/25/19 14:45 Uncollected MAGNESIUM [CHEM] Stat Lab 09/25/19 09:18 Completed PHOSPHORUS [CHEM] Stat Lab 09/25/19 09:18 Completed PROTIME WITH INR [COAG] Stat Lab 09/25/19 09:18 Completed PTT [COAG] Stat Lab 09/25/19 09:18 Completed TROPONIN T Stat Lab 09/25/19 09:18 Completed URINALYSIS W/POSS RFLX CULT [URINALYSIS] Stat Lab 09/25/19 09:37 Completed URINE DRUG SCREEN Stat Lab 09/25/19 09:37 Completed VBG [VENOUS BLOOD GAS] [RESP] Routine Lab 09/25/19 10:47 Ordered 0.9% Sodium Chloride Inj [Ns] 1,000 ml Med 09/25/19 09:15 Active IV 500 mls/hr 0.9% Sodium Chloride Inj [Ns] 1,000 ml Med 09/25/19 09:08 Discontinued IV 999 mls/hr 0.9% Sodium Chloride Inj [Ns] 100 ml Med 09/25/19 11:00 Ordered Insulin Human Regular [Humulin R] 100 unit IV Per Protocol mls/hr Dextrose 50% Syringe [D50w Syringe] Med 09/25/19 09:08 Active 25 ml IV PRN PRN Dextrose 50% Syringe [D50w Syringe] Med 09/25/19 09:08 Active 50 ml IV PRN PRN Insulin Human Regular [Humulin R] Med 09/25/19 11:00 Discontinued 6 unit IV ONCE ONE Magnesium Sulfate 2 gm/S.w.i. Med 09/25/19 09:08 Active 2 gm in 50 ml IV ONCE PRN Ondansetron [Zofran] Med 09/25/19 09:20 Discontinued 4 mg IV NOW ONE Ondansetron [Zofran] Med 09/25/19 09:18 Discontinued 8 mg IM NOW ONE Potassium Chloride 10% Liquid Med 09/25/19 09:08 Active 20 meq PO ONCE PRN PRN Potassium Chloride 20 Meq/Swi Med 09/25/19 09:08 Active 20 meq in 100 ml IV ONCE PRN Potassium Chloride 20 Meq/Swi Med 09/25/19 09:08 Active 20 meq in 100 ml IV ONCE PRN Potassium Chloride 20% Liquid Med 09/25/19 09:08 Active 40 meq PO ONCE PRN PRN Sodium Bicarbonate 8.4% 100 meq Med 09/25/19 09:08 Active Water, Sterile Inj [Sterile Water Inj] 500 ml IV ONCE PRN Sodium Phosphate 30 mmol Med 09/25/19 09:08 Active Dextrose 5%-Water Inj [D5w] 250 ml IV ONCE PRN Hypoglycemia Stat Oth 09/25/19 09:08 Ordered Oxygen Device Stat Oth 09/25/19 08:42 Active EKG [EKG] Routine Ther 09/25/19 09:08 Ordered Result Diagrams: 09/25/19 09:18 09/25/19 20:01 - REASSESSMENT Reassessment #1 Time Reassessed: 11:20 Status: improving (received IVF. more allert now than previous, no more nausea, vomiting. Discuss abn lab findings with pt and family and the need for admission prior to calling hospitalist) - XRAY 1 XRAY Study: Chest ( CHEST-1 VIEW - 09/25/2019 INDICATION: POSSIBLE SEPSIS COMPARISON: None FINDINGS: There is linear atelectasis in the right hilum. Lung volumes are severely low. No infiltrates. Heart size and pulmonary vascularity is normal. No pneumothorax or pleural effusion. IMPRESSION: Low lung volumes with mild linear atelectasis in the right lung base. Electronically signed by Adin Arce 09/25/2019 9:38 AM) - CONSULTS/PCP/HOSPITALIST Notification #1 *Consult/PCP/Hospitalist*: [facility] Time Discussed: 11:20 Consult Disposition: Admit (accepts admission for hospitalist) Departure - Departure Date of Disposition Decision: 09/25/19 Time of Disposition Decision: 11:17 DIAGNOSIS: DKA (diabetic ketoacidoses) Qualifiers: Diabetes mellitus type: type 1 Diabetes mellitus complication detail: without coma Qualified Code(s): E10.10 - Type 1 diabetes mellitus with ketoacidosis without coma Otitis media of right ear Qualifiers: Otitis media type: unspecified nonsuppurative Qualified Code(s): H65.91 - Unspecified nonsuppurative otitis media, right ear Pancreatitis Qualifiers: Pancreatitis type: unspecified pancreatitis type Disposition: ADMITTED INPATIENT 09 Certified Medical Emergency: Emergent Condition: Critical - Critical Care Note This patient required my direct & personal management of CC.: No Total Time (mins): 35 Critical Care Statement: This patient required my direct personal management to treat or rule out processes, the absence of which, could potentiallly result in sudden, clinically significant life or limb threatening deterioration. Attestation - Physician/ AGNES Attestation Patient care was provided by Advanced Practice Provider:: No The physician spent face to face time with patient:: Yes Advanced Practice Provider documentation review:: Supervising physician onsite and consulted in the evaluation and care of this patient. The physician did have a face to face encounter with the patient.
[2019-09-25] MEDS ORDERED: POTASSIUM CHLORIDE 40 MEQ/SWI 40 MEQ/100 ML IVPB IV PRN (11:31)
[2019-09-25] MEDS ORDERED: TYLENOL PO PRN (11:31)
[2019-09-25] MEDS ORDERED: COMPAZINE IV PRN (11:31)
[2019-09-25] MEDS ORDERED: ZOFRAN IV PRN (11:31)
[2019-09-25] MEDS: NS 1,000 ML IV SCH ×3 (11:45→15:06)
[2019-09-25 12:09] LABS: HEMOGLOBIN A1C 14.6 % (4.8-6.0)
[2019-09-25 12:22] LABS: AMYLASE 177 U/L (20-200); LIPASE 889 U/L (13-60)
[2019-09-25] MEDS ORDERED: SODIUM CHLORIDE 0.9% INJ SCH (12:45)
[2019-09-25 13:03] LABS: AGAP 42; BUN 13 mg/dL (8-22); CALCIUM 9.2 mg/dL (8.8-10.2); CHLORIDE 94 mmol/L (98-107); COSMO 313; CREATININE 0.9 mg/dL (0.5-0.9); ESTIMATED GFR > 60; GLUCOSE 783 mg/dL (70-104); MAGNESIUM 2.4 mg/dL (1.5-2.7); PHOSPHORUS 6.6 mg/dL (2.7-4.5); POTASSIUM 6.2 mmol/L (3.5-5.1); SODIUM 138 mmol/L (136-145); TCO2 2 mmol/L (25-35)
--- NOTE | 2019-09-25 13:40 | HISTORY AND PHYSICAL ---
PRIMARY CARE PROVIDER: No one. CHIEF COMPLAINT: Abdominal pain, nausea, vomiting, and right ear pain. HISTORY OF PRESENT ILLNESS: Ms. Rebecca Otero is a 18-year-old female with a medical history of diabetes mellitus type 1, who this past year has had DKA and pancreatitis at some point in time. She presented to [facility] yesterday with right ear pain, was diagnosed with ear infection and sent home with amoxicillin, Ultram and Motrin and some eardrops for the pain. This morning, she woke up with nausea, vomiting, generalized abdominal pain with some lethargy. She presents here with those complaints with obvious diagnostic laboratory data revealing DKA. The father and cousin are at the bedside. The father states that she has had some cough and congestion that he has noted through the week. The patient currently is too drowsy, lethargic to stay interactive during interview, so a lot of information was obtained through the father. PAST MEDICAL HISTORY: 1. Diabetes mellitus type 1. 2. DKA. 3. Pancreatitis. SURGICAL HISTORY: She has had lymph nodes removed behind her ears as a baby. SOCIAL HISTORY: Denies tobacco, alcohol or illicit drug use. She is not . No kids. Does not work. FAMILY HISTORY: Mother's side of the family had thyroid disease. Father diabetes. ALLERGIES: No known drug allergies. HOME MEDICATIONS: 1. Levemir 25 units subcutaneous nightly. 2. Insulin lispro sliding scale. 3. Amoxicillin 500 mg p.o. t.i.d. for 10 days. 4. Motrin 600 mg p.o. every 6 to 8 hours p.r.n. 5. Ultram 50 mg p.o. 6 q.6 hours p.r.n. REVIEW OF SYSTEMS: Difficult to obtain because she was so drowsy, but we will interview her more once she is more awake. PHYSICAL EXAMINATION: VITAL SIGNS: Temperature 98.7 degrees, heart rate 135, respiratory rate 29, blood pressure 127/75, O2 saturation 98% on room air. GENERAL: Ms. Rebecca Otero is a 18-year-old female. She is in no acute distress. She is very lethargic. She will nod appropriately to questions, but does not really want to talk. NECK: Trachea midline. HEENT: Atraumatic, normocephalic. Pupils equal, round, reactive to light. Extraocular movements intact. Mucous membranes are dry. NECK: Trachea midline. CARDIOVASCULAR: S1, S2. Tachycardic rate and rhythm. No rubs, gallops, murmurs. No lower extremity edema. +2 dorsalis and radial pulses. Negative JVD or carotid bruits. PULMONARY: Clear to auscultate bilateral breath sounds. No accessory muscle use or work of breathing noted Soft, mildly tender. Hypoactive bowel sounds x4. EXTREMITIES: Moves all extremities equally with full range of motion. NEUROLOGIC: Oriented x3, but otherwise would not talk. She is very drowsy. Followed commands. Sensory is intact. SKIN: Warm, dry, intact. LABORATORY DATA: White blood cells 10,000, hemoglobin 13, hematocrit 43, platelet count 382,000. INR is 1.05, PTT is 24.3. Sodium 137, potassium 5.6, her bicarb is 8, anion gap is 41, BUN 12, creatinine 0.8, glucose 684. Hemoglobin A1c was 14.6, calcium 10, phosphorus 6.3, magnesium 2.4, bilirubin 0.18, AST 36, ALT is 45, alkaline phosphatase 211, CK 51, troponin less than 0.01. Albumin is 4.6, lactate 2.9, protein 50, glucose greater than 1000, ketones greater than 150. Urine drug screen negative. Acetone level moderate. IMAGING: Chest x-ray low lung volumes with mild linear atelectasis in the right lung base. ASSESSMENT AND PLAN: 1. Diabetes mellitus type 1 with diabetic ketoacidosis. She will be started on a diabetic ketoacidosis protocol with intravenous fluid hydration, insulin and electrolyte replacements. She will be monitored more closely in the ICU. 2. Lactic acidosis, metabolic acidosis secondary to diabetic ketoacidosis . Will replace per protocol bicarbonate if needed. Currently, she is refusing arterial blood gases, so we have ordered venous blood gases along with a q.4 hour BMP. 3. History of pancreatitis. We will order amylase and lipase, which have not resulted yet. Otherwise she is getting intravenous fluids and a clear liquid diet. 4. Recent complaints of right ear pain yesterday at [facility], diagnosed with the ear infection, was started on amoxicillin and in the emergency room she got a dose of Rocephin. We can also consider resuming her oral antibiotic when she is able to hold on diet better. 5. Deep venous thrombosis prophylaxis with sequential compression devices. Dictated by ANDREIA Jacob for Tamara Wells MD cc: ANDREIA Jacob MD I performed a face to face encounter on the patient. I reviewed all labs and imaging on the patient. I agree with the H&P as dictated. [facility]
[2019-09-25] MEDS ORDERED: ALBUTEROL 0.5% INH CONC FOR HYPERKALEMIA INH ONE (14:07)
[2019-09-25] MEDS ORDERED: CALCIUM GLUCONATE 1 GM in NS 50 ML IV ONE (14:08)
[2019-09-25] MEDS ORDERED: SODIUM BICARBONATE 8.4% IV PUSH ONE (14:08)
[2019-09-25 15:12] LABS: AGAP 33; BUN 12 mg/dL (8-22); CALCIUM 9.1 mg/dL (8.8-10.2); CHLORIDE 101 mmol/L (98-107); COSMO 302; CREATININE 0.9 mg/dL (0.5-0.9); ESTIMATED GFR > 60; GLUCOSE 482 mg/dL (70-104); MAGNESIUM 2.3 mg/dL (1.5-2.7); PHOSPHORUS 5.3 mg/dL (2.7-4.5); POTASSIUM 5.2 mmol/L (3.5-5.1); SODIUM 141 mmol/L (136-145); TCO2 7 mmol/L (25-35)
[2019-09-25] MEDS ORDERED: CARDIZEM IV ONE (18:09)
[2019-09-25] MEDS: MORPHINE IV PRN (18:15)
[2019-09-25] MEDS ORDERED: CARDIZEM ONE (18:19)
[2019-09-25] MEDS: LOPRESSOR IV SCH (19:55)
[2019-09-25 20:29] LABS: AGAP 25; BUN 9 mg/dL (8-22); CALCIUM 8.9 mg/dL (8.8-10.2); CHLORIDE 109 mmol/L (98-107); COSMO 300; CREATININE 0.8 mg/dL (0.5-0.9); ESTIMATED GFR > 60; GLUCOSE 321 mg/dL (70-104); POTASSIUM 3.2 mmol/L (3.5-5.1); SODIUM 145 mmol/L (136-145); TCO2 11 mmol/L (25-35)
[2019-09-25] MEDS: POTASSIUM CHLORIDE 20% LIQUID PO PRN (20:49)
[2019-09-25 23:58] LABS: AGAP 18; BUN 8 mg/dL (8-22); CALCIUM 8.3 mg/dL (8.8-10.2); CHLORIDE 111 mmol/L (98-107); COSMO 294; CREATININE 0.8 mg/dL (0.5-0.9); ESTIMATED GFR > 60; GLUCOSE 254 mg/dL (70-104); MAGNESIUM 1.9 mg/dL (1.5-2.7); PHOSPHORUS 1.9 mg/dL (2.7-4.5); POTASSIUM 3.9 mmol/L (3.5-5.1); SODIUM 144 mmol/L (136-145); TCO2 15 mmol/L (25-35)
[2019-09-26] MEDS: NS 1,000 ML IV SCH ×3 (00:15→11:06)
[2019-09-26] MEDS: MORPHINE IV PRN ×2 (00:34→04:30)
[2019-09-26] MEDS: LOPRESSOR IV SCH ×3 (01:19→14:53)
[2019-09-26] MEDS: D5 NS 1,000 ML IV PRN ×2 (01:24→09:33)
[2019-09-26] MEDS: AMOXIL PO SCH ×2 (01:30→09:01)
[2019-09-26] MEDS ORDERED: ULTRAM PO PRN (03:44)
[2019-09-26] MEDS: PROTONIX IV SCH (06:20)
[2019-09-26 06:58] LABS: HEMATOCRIT 33.9 % (37.0-47.0); HEMOGLOBIN 10.8 g/dL (12.0-16.0); MCH 27.1 PG (27-31); MCHC 31.9 g/dL (33-37); RBC 3.99 XMIL (4.2-5.4); RDW 13.4 % (11.5-14.5); WBC 8.73 X1000 (4.8-10.8)
[2019-09-26 07:07] LABS: MAGNESIUM 1.8 mg/dL (1.5-2.7)
[2019-09-26 07:42] LABS: ACETONE SERUM NEGATIVE (NEGATIVE)
[2019-09-26] MEDS: MAXIPIME 1 GM in NS 50 ML IV SCH ×2 (07:42→20:45)
[2019-09-26 07:59] LABS: ALB/GLOB RATIO 1.4; ALBUMIN 3.3 g/dL (3.5-5.0); ALKALINE PHOSPHATASE 129 U/L (32-104); DIRECT BILIRUBIN < 0.10 mg/dL (0.00-0.20); GOT 19 U/L (10-30); GPT 26 U/L (10-36); TOTAL BILIRUBIN < 0.15 mg/dL (0.20-1.00); TOTAL PROTEIN 5.7 g/dL (6.3-8.3)
[2019-09-26 08:36] LABS: MAGNESIUM 1.8 mg/dL (1.5-2.7); PHOSPHORUS 2.2 mg/dL (2.7-4.5)
[2019-09-26 08:42] LABS: AGAP 14; BUN 6 mg/dL (8-22); CALCIUM 8.2 mg/dL (8.8-10.2); CHLORIDE 106 mmol/L (98-107); COSMO 279; CREATININE 0.6 mg/dL (0.5-0.9); ESTIMATED GFR > 60; GLUCOSE 198 mg/dL (70-104); POTASSIUM 3.2 mmol/L (3.5-5.1); SODIUM 138 mmol/L (136-145); TCO2 18 mmol/L (25-35)
[2019-09-26] MEDS: POTASSIUM CHLORIDE 20% LIQUID PO PRN (09:01)
[2019-09-26 10:12] LABS: ESTIMATED GFR > 60
[2019-09-26 10:13] LABS: AGAP 17; BUN 6 mg/dL (8-22); CALCIUM 8.3 mg/dL (8.8-10.2); CHLORIDE 106 mmol/L (98-107); COSMO 278; CREATININE 0.6 mg/dL (0.5-0.9); GLUCOSE 211 mg/dL (70-104); POTASSIUM 3.3 mmol/L (3.5-5.1); SODIUM 137 mmol/L (136-145); TCO2 14 mmol/L (25-35)
[2019-09-26] MEDS ORDERED: LEVEMIR SUBQ ONE (10:24)
[2019-09-26] MEDS ORDERED: LOPRESSOR PO ONE (10:25)
[2019-09-26] MEDS ORDERED: KLOR-CON PO ONE (10:31)
[2019-09-26] MEDS: HUMULIN R SUBQ SCH ×5 (10:42→23:31)
[2019-09-26] MEDS ORDERED: INSULIN PEN NEEDLES ONE (11:16)
[2019-09-26] MEDS ORDERED: POTASSIUM PHOSPHATE 30 MMOL in NS 250 ML IV ONE (14:57)
[2019-09-26] MEDS ORDERED: LABETALOL IV PRN (14:59)
--- NOTE | 2019-09-26 15:16 | PROGRESS NOTE ---
DATE: 09/26/2019 SUBJECTIVE: The patient complains of pain in her right ear. Otherwise no acute events noted overnight. OBJECTIVE: Vital Signs: Temperature 98.6 degrees, blood pressure 109/71, heart rate 93, respirations 16, O2 saturation 96% on room air. General: This is a young female lying in bed in no acute distress. Heart: S1, S2. Normal. Regular rate and rhythm. Lungs: Equal air entry bilaterally. No wheezing. No rales. No rhonchi. Abdomen: Positive bowel sounds. Soft, nontender, nondistended. Extremities: No edema, no cyanosis. Neurologic: The patient is alert and oriented x3. LABS: White blood cell count 8.7, hemoglobin 10, hematocrit 33, platelets 342,000. Sodium 138, potassium 3.2, chloride 108, CO2 18, anion gap of 14, creatinine 0.6, BUN 6, glucose 198, phosphorus 2.2, potassium 3.2. ASSESSMENT AND PLAN: 1. Diabetic ketoacidosis. Resolved. Will transition the patient to subcutaneous insulin and sliding scale coverage. Will also consult with the dietitian to assist the patient with diet compliance upon discharge. 2. Right otitis media. Continue on antibiotic therapy. 3. Uncontrolled hypertension. We will start the patient on lisinopril and continue on Lopressor. 4. Poorly controlled insulin-dependent diabetes mellitus. The patient has a hemoglobin A1c of 14.6. We will continue to adjust the patient's insulin regimen. The patient has been counseled about the importance of medication compliance and followup with her primary care physician. 5. Hyperlipidemia. Will start the patient on Lipitor. cc: Tamara Wells MD MTDD
--- NOTE | 2019-09-26 18:39 | Diag Imaging Result Doc PS360 ---
CT HEAD W/O CONTRAST - 09/26/2019 INDICATION: ear drainage/pain COMPARISON: 03/14/2019 FINDINGS: The ventricles and sulci are normal in size and contour. No intracranial mass or hemorrhage. The skull is intact. The sinuses mastoids and middle ears are clear. There is some mild nonspecific fluid in the right external auditory canal. IMPRESSION: Mild nonspecific fluid in the right external auditory canal. This may indicate otitis externa. Otherwise negative exam. This exam was performed using automated exposure control, adjustment of mA or kV according to patient size, and/or use of iterative reconstruction technique Electronically signed by Adin Arce 09/26/2019 6:37 PM
[2019-09-26] MEDS: LOPRESSOR PO SCH (20:45)
[2019-09-26] MEDS: LEVEMIR SUBQ SCH (20:48)
[2019-09-26] MEDS ORDERED: LIPITOR PO SCH (21:00)
[2019-09-26] MEDS: CIPRO HC OTIC SUSPENSION OTIC SCH ×2 (21:00→22:30)
[2019-09-27] MEDS: NS 1,000 ML IV SCH ×2 (01:15→11:15)
[2019-09-27] MEDS: HUMULIN R SUBQ SCH ×3 (03:30→11:56)
[2019-09-27 05:24] LABS: HEMATOCRIT 32.9 % (37.0-47.0); HEMOGLOBIN 10.5 g/dL (12.0-16.0); MCH 27.7 PG (27-31); MCHC 31.9 g/dL (33-37); MCV 86.8 FL (81-99); RBC 3.79 XMIL (4.2-5.4); RDW 13.9 % (11.5-14.5); WBC 5.63 X1000 (4.8-10.8)
[2019-09-27 05:30] LABS: AGAP 14; ALBUMIN 2.9 g/dL (3.5-5.0); BUN 6 mg/dL (8-22); CHLORIDE 106 mmol/L (98-107); COSMO 275; CREATININE 0.5 mg/dL (0.5-0.9); ESTIMATED GFR > 60; GLUCOSE 129 mg/dL (70-104); PHOSPHORUS 2.9 mg/dL (2.7-4.5); POTASSIUM 3.3 mmol/L (3.5-5.1); SODIUM 138 mmol/L (136-145); TCO2 18 mmol/L (25-35)
[2019-09-27] MEDS: PROTONIX IV SCH (06:43)
--- NOTE | 2019-09-27 07:01 | EKG Report ---
Test Performed on : 09/25/2019 10:04:28 AM Test Reason : POSSIBLE EKG Blood Pressure : / mmHG Vent. Rate : 131 BPM Atrial Rate : 131 BPM P-R Int : 142 ms QRS Dur : 084 ms QT Int : 310 ms P-R-T Axes : 073 079 045 degrees QTc Int : 457 ms Sinus tachycardia. Possible Left atrial enlargement Borderline ECG When compared with ECG of 26-JUN-2019 08:32, Nonspecific T wave abnormality no longer evident in Anterior leads Unconfirmed Result
[2019-09-27] MEDS ORDERED: KLOR-CON PO ONE (07:18)
[2019-09-27] MEDS: LOPRESSOR PO SCH (08:05)
[2019-09-27] MEDS: MAXIPIME 1 GM in NS 50 ML IV SCH (08:05)
[2019-09-27] MEDS: CIPRO HC OTIC SUSPENSION OTIC SCH (08:05)
[2019-09-27] MEDS ORDERED: PRINIVIL PO SCH (09:00)
[2019-09-27 12:06] VITALS: BP 121/79
[2019-09-27] MEDS: LEVEMIR SUBQ SCH (13:42)
--- NOTE | 2019-10-09 12:50 | DISCHARGE SUMMARY ---
ADMISSION DATE: 09/25/2019 DISCHARGE DATE: 09/27/2019 FINAL DISCHARGE DIAGNOSES: 1. Diabetic ketoacidosis. 2. Poorly controlled insulin-dependent diabetes mellitus. 3. Uncontrolled hypertension. 4. Right otitis media. 5. Hyperlipidemia. HOSPITAL COURSE: Ms. Otero is a 18-year-old female, with a history of type 1 diabetes and medical noncompliance, who presented to the ER in DKA. The patient was admitted to the hospitalist service and admitted to the ICU. She was started on a DKA protocol to include IV fluids and an insulin drip. The patient was noted to have an ear infection and was started on IV antibiotic. Her blood pressure was elevated and antihypertensive therapy was also initiated. A lipid profile was performed that revealed hyperlipidemia and the patient was started on Lipitor. The patient responded well to the fluid resuscitation and insulin drip and was ultimately transitioned to subcutaneous insulin. The patient was then transferred to the medical floor. The patient was extensively counseled about the importance of medication compliance. The patient was noted to have a hemoglobin A1c of 14.6. The plan of care was discussed with the patient and her father. The patient continued to improve clinically and was ultimately cleared for discharge on 09/27/2019. DISCHARGE MEDICATIONS: 1. Augmentin 500/125 one tab oral twice a day x5 days. 2. Levemir 35 units subcutaneous twice a day. 3. Lisinopril 20 mg oral daily. 4. Lipitor 20 mg oral at bedtime. 5. Lopressor 25 mg oral twice a day. 6. Ultram 50 mg oral every 6 hours p.r.n. for pain. DISCHARGE DIET: 1800 ADA diet; low-sodium, low-cholesterol diet. ACTIVITY: As tolerated. FOLLOWUP INSTRUCTIONS: The patient will need to follow up with her primary care physician in 1 week. It was also recommended that the patient possibly consider referral to an information technology teacher. cc: Tamara Wells MD
== END 2019-09-27 17:00 | disposition home or self-care (01) | DRG 639 ==
LOC: SUPCPDRO → ED 08:26 → ICU 11:41 → 1N 09-26 18:58
PROVIDERS: ATTEND Internal Medicine